=== PATIENT | female | born 1990 | race Native Hawaiian/Other Pacific Islander ===

== ENCOUNTER 2018-02-03 02:10 | Emergency (ER) | payer BC ==
[~2018-02-03] VITALS: Ht 170.2 cm; Wt 87.1 kg
[2018-02-03 03:34] VITALS: BP 109/69; TEMP 97.5
== END 2018-02-03 03:39 | disposition home or self-care (01) ==
LOC: ED 02:10
DX: T78.1XXA Other adverse food reactions, not elsewhere classified, initial encounter (principal)
CPT/HCPCS: 36415; 96372; 99283; J1885; J2550

== ENCOUNTER 2018-10-17 13:48 | Emergency (ER) | payer BC ==
[~2018-10-17] VITALS: Ht 170.2 cm; Wt 81.6 kg
[2018-10-17 13:55] VITALS: TEMP 97.9
[2018-10-17 14:31] LABS: PLATELET COUNT 370 K/uL (152-353)
[2018-10-17 15:03] VITALS: BP 138/80
== END 2018-10-17 15:03 | disposition home or self-care (01) ==
LOC: ED 13:48
DX: J02.0 Streptococcal pharyngitis (principal)
CPT/HCPCS: 36415; 80053; 85027; 87502; 87651; 99283

== ENCOUNTER 2019-12-17 13:27 | Emergency (ER) | payer BC ==
[~2019-12-17] VITALS: Ht 170.2 cm; Wt 93.0 kg
[2019-12-17 20:58] LABS: PLATELET COUNT 424 K/uL (152-353)
[2019-12-17 22:02] LABS: POTASSIUM 3.3 mmol/L (3.6-5.2)
[2019-12-17 23:05] VITALS: BP 116/71; TEMP 98.2
== END 2019-12-17 23:05 | disposition home or self-care (01) ==
LOC: ED 13:27
PROVIDERS: Emergency Medicine
DX: K59.00 Constipation, unspecified (principal)
CPT/HCPCS: 36415; 80053; 81000; 81025; 82150; 83690; 85027; 86318; 96360; 99284